=== PATIENT | female | born 1995 | race Caucasian/White ===

== ENCOUNTER 2020-12-16 19:08 | Emergency (ER) | payer OTHER ==
[2020-12-16] MEDS ORDERED: CEPHALEXIN500 MG PO (20:11)
[2020-12-16] MEDS ORDERED: BACTRIM DS TAB1 EACH PO (20:11)
== END 2020-12-16 20:45 | disposition home or self-care (01) ==
LOC: FER 19:08
DX: L02.511 Cutaneous abscess of right hand (principal); Z88.0 Allergy status to penicillin
CPT/HCPCS: 99282

== ENCOUNTER 2021-11-03 21:29 | Emergency (ER) | payer OTHER ==
[~2021-11-03 21:29] MED LIST: BACTRIM DS TAB1 EACH PO; CEPHALEXIN500 MG PO
== END 2021-11-03 23:10 | disposition home or self-care (01) ==
LOC: FER 21:29
DX: T40.1X1A Poisoning by heroin, accidental (unintentional), initial encounter (principal); F17.210 Nicotine dependence, cigarettes, uncomplicated; Z88.0 Allergy status to penicillin; Z28.310 Unvaccinated for COVID-19
CPT/HCPCS: 99284